=== PATIENT | male | born 1995 | race Two or more races ===

== ENCOUNTER 2023-05-04 16:46 | Emergency (ER) | payer OTHER ==
[~2023-05-04] VITALS: Ht 177.8 cm; Wt 65.8 kg
[2023-05-04 17:00] VITALS: BP 129/78; TEMP 98.1; O2SAT 97
== END 2023-05-04 17:42 | disposition home or self-care (01) ==
LOC: ER 16:46
DX: S00.03XA Contusion of scalp, initial encounter (principal); X58.XXXA Exposure to other specified factors, initial encounter; Y93.89 Activity, other specified; Y92.89 Other specified places as the place of occurrence of the external cause; Y99.8 Other external cause status